=== PATIENT | female | born 1940 | race Caucasian/White ===

== ENCOUNTER 2018-09-09 16:33 | Emergency (ER) | payer MEDICARE, OTHER ==
[~2018-09-09 16:33] MED LIST: Iopamidol 370 76% 100 ML VIAL ONE
[2018-09-09 17:07] LABS: #Basophils 0.1 thou/uL (0.0-0.2); #Eosinphils 0.1 thou/uL (0.0-0.7); #Lymphocytes 3.7 thou/uL (1.20-3.40); #Monocytes 0.7 thou/uL (0.11-0.59); #Neutrophils 8.8 thou/uL (1.40-6.50); %Basophils 0.7 % (0.0-1.0); %Eosinophils 0.4 % (0.0-10.0); %Lymphocytes 27.6 % (21.0-51.0); %Neutrophils 66.3 % (42.0-75.0); Hemoglobin 14.8 g/dL (12.0-16.0); Mean Corpuscular HGB CONC 33.2 g/dL (32.0-36.0); Mean Corpuscular Hemoglobin 30.1 pg (27.0-31.0); Mean Corpuscular Volume 90.7 fL (78.0-98.0); Mean Platelet Volume 9.4 fL (7.4-10.4); Platelet Count 279 thou/uL (130-400); Red Blood Cell (RBC) Count 4.93 mill/uL (4.20-5.40); White Blood Cell (WBC) Count 13.3 thou/uL (4.8-10.8)
[2018-09-09 17:07] LABS: Bilirubin Negative (Negative); Blood, Urine Trace (Negative); Clarity Cloudy (Clear); Glucose, Urine (Dipstick) Negative (Negative); Leukocyte Small (Negative); Nitrite Positive (Negative); Protein, Urine (Dipstick) Trace mg/dL (Neg-Trace)
[2018-09-09 17:10] LABS: Bacteria/HPF 4+ HPF (None Seen); RBC/HPF 0-3 HPF (0-3); Squamous Epithelial 0-3 HPF (0-3)
[2018-09-09 17:22] LABS: ALT (SGPT) 16 U/L (8-55); AST (SGOT) 11 U/L (5-34); Albumin 4.2 g/dL (3.4-4.8); Alkaline Phosphatase 102 U/L (40-150); Anion Gap 16 mmol/L (10-20); BUN (Urea Nitrogen) 15 mg/dL (9.8-20.1); Bilirubin, Total 0.6 mg/dL (0.2-1.2); Calc. Creatinine Clearance 0 mL/min (70-130); Calcium 9.7 mg/dL (7.8-10.44); Carbon Dioxide 22 mmol/L (23-31); Chloride 105 mmol/L (98-107); Estimated GFR-MDRD 74; Globulin 3.2 g/dL (2.4-3.5); Glucose 113 mg/dL (83-110); Lipase 26 U/L (8-78); Potassium 3.5 mmol/L (3.5-5.1); Protein, Total 7.4 g/dL (6.0-8.3); Sodium 139 mmol/L (136-145)
[2018-09-09] MEDS ORDERED: Fentanyl 100 MCG/2 ML VIAL ONE (18:07)
[2018-09-09] MEDS ORDERED: Aspirin Chewable 81 MG TAB ONE (18:08)
[2018-09-09] MEDS ORDERED: Magnesium Citrate 300 ML BOT ONE (18:08)
--- NOTE | 2018-09-09 19:14 | CT ---
CT ABDOMEN AND PELVIS WITH IV CONTRAST: 09/09/18 INDICATIONS: Small bowel obstruction. Abdominal pain. No comparison exam. FINDINGS: Lung bases clear. 2.0 cm cyst posterior left lobe of the liver. Liver, spleen and pancreas otherwise unremarkable. Post cholecystectomy changes. Stomach and duodenum unremarkable. Adrenal glands normal. Large cyst in the superior left kidney measures 11 to 12 cm. There is internal enhancement with some enhancing septations making this a complex lesion. Follow-up is recommended. No hydronephrosis. There are other small cystic lesions in both kidneys which are too small to charac terize. Urinary bladder unremarkable. Small bowel loops are normal caliber. There is no evidence of small bow el obstruction. Appendix is identified and appears unremarkable. Stool throughout the colon. Aorta no rmal caliber. No mass or adenopathy. No free fluid. Degenerative changes in the lumbar spine. IMPRESSION: 1. Large complex cyst in the superior left kidney. Follow-up is recommended to confirm stability . 2. Small hepatic cysts. 3. No acute process identified. POS: [place]
[2018-09-09] MEDS ORDERED: Morphine 4 MG/ML VIAL ONE (19:29)
[2018-09-09 20:21] LABS: Troponin I 0.106 ng/mL (< 0.028)
== END 2018-09-09 20:58 | disposition home or self-care (01) ==
LOC: BURERS 16:33
DX: K59.00 Constipation, unspecified (principal); M54.9 Dorsalgia, unspecified; Z79.82 Long term (current) use of aspirin; Z79.891 Long term (current) use of opiate analgesic; Z79.899 Other long term (current) drug therapy
CPT/HCPCS: 74177; 80053; 81003; 81015; 82553; 83605; 83690; 84484; 85025; 93005; 96361; 96374; 96375; J2270; J3010; Q9967

== ENCOUNTER 2019-01-19 10:14 | Outpatient (CLI) | payer MEDICARE, OTHER ==
--- NOTE | 2019-01-19 13:36 | CT ---
CT ABDOMEN AND PELVIS WITH CONTRAST: 01/19/2019 COMPARISON: 09/09/2018 FINDINGS: The prior study showed a large complex cyst associated with the left kidney, among other findings. To day's exam was done after giving IV contrast as well as oral contrast. Axial slices were acquired fol lowed by coronal and sagittal reconstructions. The lung bases are clear except for a few areas of scarring and atelectasis. The liver is normal in appearance, except for a 2.2 cm simple cyst in the left lobe. It has not walsh ed in the interval. The remainder of the liver is unremarkable. The spleen and pancreas appear normal . There has been a prior cholecystectomy. The right adrenal gland appears normal. The left adrenal gl and has a small 1.9 cm rounded mass in it. It was present on the prior exam and has not changed in si ze or appearance. The large complex cyst associated with the left kidney is again seen. It has not changed in any subst antial way in the interval. It probably has a small septation in it. Its maximal width on the axial v iews is 9.3 cm versus 10 cm before. Its maximal length on the coronal images today is 12.0 cm versus 11.6 cm today. This is really no different judging for differences in exact slice measured. There is no hydronephrosis. There is a smaller cyst in the left kidney centrally and a very tiny cyst in the r ight kidney. There is very prominent thickening of the duodenum and especially the proximal jejunum. This is a new finding compared to the prior study. Inflammatory or infectious conditions would be the most likely causes with vascular causes being less likely. There is no sign of significant mesenteric adenopathy. Only small nodes are present throughout the mesentery. The colon shows no dilation or wall thickenin g, but there is abundant fecal material present. There is was no sign of diverticulitis. There is no free air or free fluid. CT of the pelvis shows no pelvic mass, fluid or inflammatory change. Degenerative changes are promine nt in the spine, particularly at L2-L3 and L3-L4 in terms of the disks being degenerated. IMPRESSION: 1. Large complex cyst associated with the upper pole of the left kidney. While it is mostly cystic, i t does appear to have a few septations in it. Its size and appearance has not changed since the August study. 2. Small hepatic and renal cyst otherwise, unchanged. 3. Small, 1.9 cm left adrenal mass, unchanged from the prior study. If further workup were needed a d edicated study with and without intravenous contrast could be done. At this point given the small siz e and lack of traveler changer time it may be best just to routinely follow it up in the future. 4. Interval appearance of very definite thickening of the casas of the duodenum and proximal jejunum. The possibility of inflammatory or infectious etiologies is raised. CODE T POS: HOME
[2019-01-19] MEDS ORDERED: Iopamidol 370 76% 100 ML VIAL ONE (14:28)
== END 2019-01-19 10:15 | disposition home or self-care (01) ==
LOC: BURCT 10:14
PROVIDERS: ATTEND Family Medicine
DX: R10.32 Left lower quadrant pain (principal); N28.1 Cyst of kidney, acquired; E27.8 Other specified disorders of adrenal gland; K76.89 Other specified diseases of liver
CPT/HCPCS: 74177; Q9967

== ENCOUNTER 2021-11-02 16:31 | Outpatient (CLI) | payer OTHER | END 2021-11-02 16:32 | disposition home or self-care (01) | LOC: BURRAD 16:31 | PROVIDERS: ATTEND Family Medicine | DX: M17.12 Unilateral primary osteoarthritis, left knee (principal); M25.462 Effusion, left knee ==

== ENCOUNTER 2021-12-09 16:26 | Inpatient (IN) | payer OTHER ==
[2021-12-09 17:14] LABS: #Basophils 0.1 thou/uL (0.0-0.2); #Eosinphils 0.1 thou/uL (0.0-0.7); #Lymphocytes 2.6 thou/uL (1.20-3.40); #Monocytes 1.3 thou/uL (0.11-0.59); #Neutrophils 7.6 thou/uL (1.40-6.50); %Basophils 0.6 % (0.0-1.0); %Eosinophils 0.9 % (0.0-10.0); %Monocytes 11.4 % (0.0-10.0); %Neutrophils 65.1 % (42.0-75.0); Mean Corpuscular HGB CONC 32.4 g/dL (32.0-36.0); Mean Corpuscular Volume 95.6 fL (78.0-98.0); Platelet Count 224 thou/uL (130-400); RBC Distribution Width 12.3 % (11.5-14.5); Red Blood Cell (RBC) Count 3.88 mill/uL (4.20-5.40); White Blood Cell (WBC) Count 11.7 thou/uL (4.8-10.8)
[2021-12-09] MEDS ORDERED: Azithromycin 500 MG VIAL ONE (17:16)
[2021-12-09 17:34] LABS: ALT (SGPT) 17 U/L (8-55); AST (SGOT) 13 U/L (5-34); Albumin 3.4 g/dL (3.4-4.8); Alkaline Phosphatase 86 U/L (40-110); Anion Gap 16 mmol/L (10-20); BUN (Urea Nitrogen) 16 mg/dL (9.8-20.1); Bilirubin, Total 0.4 mg/dL (0.2-1.2); Calc. Creatinine Clearance 0 mL/min (70-130); Calcium 8.8 mg/dL (7.8-10.44); Carbon Dioxide 23 mmol/L (23-31); Chloride 101 mmol/L (98-107); Estimated GFR 80; Globulin 3.4 g/dL (2.4-3.5); Glucose 139 mg/dL (83-110); Potassium 3.5 mmol/L (3.5-5.1); Protein, Total 6.8 g/dL (5.8-8.1); Sodium 136 mmol/L (136-145)
[2021-12-09] MEDS ORDERED: cefTRIAXone\\ROCEPHIN 1 GM VIAL ONE (17:57)
[2021-12-09] MEDS: Sodium Chloride 0.9% 1,000 ML IV SCH (19:30)
[2021-12-09] MEDS ORDERED: Calcium Carbonate 500 MG ChewTAB PO PRN (20:26)
[2021-12-09] MEDS ORDERED: Senokot S 8.6-50 MG TAB PO PRN (20:26)
[2021-12-09] MEDS ORDERED: Acetaminophen 650 MG Suppository PR PRN (20:26)
[2021-12-09] MEDS ORDERED: Acetaminophen 325 MG TAB PO PRN (20:26)
[2021-12-09] MEDS ORDERED: Loperamide HCl 2 MG CAP PO PRN (20:26)
[2021-12-09] MEDS ORDERED: Ondansetron ODT 4 MG TAB PO PRN (20:26)
[2021-12-09] MEDS ORDERED: Bisacodyl 5 MG TAB PO PRN (20:26)
[2021-12-09 20:34] LABS: SARS-CoV-2 NAA Rapid Test Not Detected (NotDetected)
[2021-12-09] MEDS: Guaifenesin DM 100-10/5 ML UDCUP PO PRN (21:05)
[2021-12-09] MEDS: Simvastatin 5 MG TAB PO SCH (21:05)
[2021-12-09] MEDS: Losartan Potassium 50 MG TAB PO SCH (21:05)
[2021-12-09] MEDS: Enoxaparin Sodium 40 MG/0.4 ML SYRINGE SC SCH (21:05)
[2021-12-09] MEDS: Famotidine 20 MG TAB PO SCH (21:05)
[2021-12-10] MEDS: Guaifenesin DM 100-10/5 ML UDCUP PO PRN ×4 (00:18→13:53)
[2021-12-10 04:46] LABS: #Basophils 0.1 thou/uL (0.0-0.2); #Eosinphils 0.2 thou/uL (0.0-0.7); #Lymphocytes 2.3 thou/uL (1.20-3.40); #Monocytes 1.1 thou/uL (0.11-0.59); #Neutrophils 6.6 thou/uL (1.40-6.50); %Basophils 0.8 % (0.0-1.0); %Eosinophils 1.9 % (0.0-10.0); %Lymphocytes 22.1 % (21.0-51.0); %Monocytes 10.6 % (0.0-10.0); %Neutrophils 64.6 % (42.0-75.0); Hemoglobin 11.1 g/dL (12.0-16.0); Mean Corpuscular HGB CONC 33.9 g/dL (32.0-36.0); Mean Corpuscular Hemoglobin 31.5 pg (27.0-31.0); Mean Corpuscular Volume 93.1 fL (78.0-98.0); Mean Platelet Volume 12.3 fL (7.4-10.4); Platelet Count 196 thou/uL (130-400); RBC Distribution Width 12.1 % (11.5-14.5); Red Blood Cell (RBC) Count 3.52 mill/uL (4.20-5.40); White Blood Cell (WBC) Count 10.2 thou/uL (4.8-10.8)
[2021-12-10 04:54] LABS: ALT (SGPT) 15 U/L (8-55); AST (SGOT) 13 U/L (5-34); Alkaline Phosphatase 91 U/L (40-110); Anion Gap 14 mmol/L (10-20); BUN (Urea Nitrogen) 11 mg/dL (9.8-20.1); Bilirubin, Total 0.3 mg/dL (0.2-1.2); Calc. Creatinine Clearance 0 mL/min (70-130); Calcium 8.5 mg/dL (7.8-10.44); Carbon Dioxide 25 mmol/L (23-31); Chloride 104 mmol/L (98-107); Estimated GFR 82; Potassium 3.5 mmol/L (3.5-5.1); Protein, Total 6.1 g/dL (5.8-8.1); Sodium 139 mmol/L (136-145)
[2021-12-10 06:14] LABS: Albumin 3.1 g/dL (3.4-4.8); Glucose 165 mg/dL (83-110)
[2021-12-10] MEDS: Cholecalciferol 1,000 UNITS (25 MCG) TAB PO SCH (08:31)
[2021-12-10] MEDS: Zinc Sulfate 220 MG CAP PO SCH (08:31)
[2021-12-10] MEDS: Hydrochlorothiazide 25 MG TAB PO SCH (08:32)
[2021-12-10] MEDS: Aspirin 81 mg Enteric Coated Tablet PO SCH (08:32)
[2021-12-10] MEDS: Famotidine 20 MG TAB PO SCH ×2 (08:32→20:13)
[2021-12-10] MEDS ORDERED: FLU VACC QS2022-23(65YR UP)/PF 240 MCG/0.7 ML SYRINGE IM ONE (09:00)
[2021-12-10] MEDS ORDERED: predniSONE 20 MG TAB PO SCH (12:00)
[2021-12-10] MEDS: Enoxaparin Sodium 40 MG/0.4 ML SYRINGE SC SCH ×2 (12:51→13:34)
[2021-12-10] MEDS: Albuterol Sulfate 2.5 mg/3 ml Neb NEB SCH ×2 (12:57→18:18)
[2021-12-10] MEDS: Sodium Chloride 0.9% 1,000 ML IV SCH (17:16)
[2021-12-10] MEDS: Azithromycin 500 MG in Sodium Chloride 0.9% 250 ML 250 ML IVPB SCH (20:12)
[2021-12-10] MEDS: cefTRIAXone\\ROCEPHIN 1 GM in Sodium Chloride 0.9% 100 ML IVPB SCH (20:12)
[2021-12-10] MEDS: Losartan Potassium 50 MG TAB PO SCH (20:13)
[2021-12-10] MEDS: Simvastatin 5 MG TAB PO SCH (20:13)
[2021-12-11] MEDS: Albuterol Sulfate 2.5 mg/3 ml Neb NEB SCH ×4 (00:08→18:02)
[2021-12-11] MEDS: Famotidine 20 MG TAB PO SCH ×2 (08:32→20:17)
[2021-12-11] MEDS: Cholecalciferol 1,000 UNITS (25 MCG) TAB PO SCH (08:32)
[2021-12-11] MEDS: Aspirin 81 mg Enteric Coated Tablet PO SCH (08:32)
[2021-12-11] MEDS: predniSONE 20 MG TAB PO SCH (08:32)
[2021-12-11] MEDS: Hydrochlorothiazide 25 MG TAB PO SCH (08:32)
[2021-12-11] MEDS: Enoxaparin Sodium 40 MG/0.4 ML SYRINGE SC SCH (08:33)
[2021-12-11] MEDS: Zinc Sulfate 220 MG CAP PO SCH (08:33)
[2021-12-11 12:11] VITALS: BMI 27.4
[2021-12-11] MEDS: Nicotine 21 MG PATCH TOP SCH (12:15)
[2021-12-11] MEDS: cefTRIAXone\\ROCEPHIN 1 GM in Sodium Chloride 0.9% 100 ML IVPB SCH (20:17)
[2021-12-11] MEDS: Simvastatin 5 MG TAB PO SCH (20:17)
[2021-12-11] MEDS: Losartan Potassium 50 MG TAB PO SCH (20:17)
[2021-12-11] MEDS: Azithromycin 500 MG in Sodium Chloride 0.9% 250 ML 250 ML IVPB SCH (20:17)
[2021-12-12] MEDS: Albuterol Sulfate 2.5 mg/3 ml Neb NEB SCH ×4 (00:02→19:19)
[2021-12-12] MEDS: predniSONE 20 MG TAB PO SCH (08:41)
[2021-12-12] MEDS: Cholecalciferol 1,000 UNITS (25 MCG) TAB PO SCH (08:41)
[2021-12-12] MEDS: Aspirin 81 mg Enteric Coated Tablet PO SCH (08:41)
[2021-12-12] MEDS: Enoxaparin Sodium 40 MG/0.4 ML SYRINGE SC SCH (08:41)
[2021-12-12] MEDS: Zinc Sulfate 220 MG CAP PO SCH (08:42)
[2021-12-12] MEDS: Hydrochlorothiazide 25 MG TAB PO SCH (08:42)
[2021-12-12] MEDS: Famotidine 20 MG TAB PO SCH ×2 (09:05→20:26)
[2021-12-12] MEDS: Nicotine 21 MG PATCH TOP SCH (13:08)
[2021-12-12] MEDS: cefTRIAXone\\ROCEPHIN 1 GM in Sodium Chloride 0.9% 100 ML IVPB SCH (20:24)
[2021-12-12] MEDS: Losartan Potassium 50 MG TAB PO SCH (20:25)
[2021-12-12] MEDS: Simvastatin 5 MG TAB PO SCH (20:26)
[2021-12-12] MEDS: Azithromycin 500 MG in Sodium Chloride 0.9% 250 ML 250 ML IVPB SCH (21:05)
[2021-12-13] MEDS: Albuterol Sulfate 2.5 mg/3 ml Neb NEB SCH ×3 (01:01→12:01)
[2021-12-13] MEDS: predniSONE 20 MG TAB PO SCH (09:18)
[2021-12-13] MEDS: Cholecalciferol 1,000 UNITS (25 MCG) TAB PO SCH (09:19)
[2021-12-13] MEDS: Aspirin 81 mg Enteric Coated Tablet PO SCH (09:19)
[2021-12-13] MEDS: Hydrochlorothiazide 25 MG TAB PO SCH (09:19)
[2021-12-13] MEDS: Zinc Sulfate 220 MG CAP PO SCH (09:19)
[2021-12-13] MEDS: Famotidine 20 MG TAB PO SCH (09:19)
[2021-12-13] MEDS: Enoxaparin Sodium 40 MG/0.4 ML SYRINGE SC SCH (09:20)
[2021-12-13] MEDS: Nicotine 21 MG PATCH TOP SCH (12:01)
[2021-12-13 13:12] VITALS: BP 128/70; TEMP 98.7
== END 2021-12-13 14:10 | disposition home or self-care (01) | DRG 193 ==
LOC: BURERS 16:26 → BURMED 18:30
PROVIDERS: ADMIT Family Medicine; ATTEND Family Medicine
DX: J18.9 Pneumonia, unspecified organism (principal); J96.01 Acute respiratory failure with hypoxia; E11.9 Type 2 diabetes mellitus without complications; I10 Essential (primary) hypertension; Z20.822 Contact with and (suspected) exposure to COVID-19
CPT/HCPCS: 36415; 71045; 80053; 83605; 83880; 84484; 85025; 87040; 93005; 94760; 96374; J0456; J0696; J1650; J3490; J7050; J7512; J7611; J7620; U0002

== ENCOUNTER 2022-05-04 09:04 | Outpatient (CLI) | payer OTHER | END 2022-05-04 09:05 | disposition home or self-care (01) | LOC: BURCT 09:04 | PROVIDERS: ATTEND Family Medicine | DX: R10.9 Unspecified abdominal pain (principal) | CPT/HCPCS: 74177 ==